=== PATIENT | male | born 1960 | race Caucasian/White ===

== ENCOUNTER 2019-05-30 07:13 | Emergency (ER) | payer MEDICAID ==
--- NOTE | 2019-05-30 08:09 | CRLCR ---
INDICATION: Dyspnea COMPARISON: July 17, 2012. TECHNIQUE: PA and lateral views of the chest were acquired FINDINGS: TUBES AND LINES: None. HEART AND MEDIASTINUM: The heart size is normal. The mediastinal contour appears normal for patient age. LUNGS AND PLEURAL SPACES: The lungs appear normal.There pleural spaces are unremarkable. OSSEOUS STRUCTURES: Age-appropriate appearance. No acute focal finding. IMPRESSION: No evidence of active pulmonary disease. Dictated by Jhoan Ng MD @ May 30 2019 8:06AM Signed by Dr. Jhoan Ng @ May 30 2019 8:07AM
[2019-05-30] MEDS ORDERED: Albuterol/Ipratropium 3.0-0.5 MG/3 ML Neb Soln NEB ONE (08:10)
[2019-05-30 08:36] VITALS: BP 141/66; PULSE 78
--- NOTE | 2019-05-30 08:38 | EDM.PDOC ---
ED HPI GENERAL MEDICAL PROBLEM - General Chief Complaint: Abdominal Pain Stated Complaint: ABDOMINAL PAIN Time Seen by Provider: 05/30/19 07:30 Source of Information: Reports: Patient, Family History Limitations: Reports: No Limitations - History of Present Illness INITIAL COMMENTS - FREE TEXT/NARRATIVE: 59-year-old male with mild chronic COPD, recent increase in cough over the past 2 months who was in the clinic yesterday and started on antibiotics for " walking pneumonia". No fevers or chills. He has a slowly worsening upper abdominal pain which is positional and radiates to the middle of his back over the past 24 hours. He has no pain when sitting up but lying down and turning from right to left or leaning forward causes the pain in his upper abdomen. No nausea or vomiting. No fevers or chills. No bowel changes. No falls or external evidence of bruising. He continues to smoke. Onset: Gradual Duration: Hour(s): (24 hours) Location: Reports: Abdomen, Back Worsens with: Reports: Other (Certain positions such as lying down or rolling side to side), Movement Associated Symptoms: Reports: Cough. Denies: Fever/Chills, Loss of Appetite, Malaise, Nausea/Vomiting, Shortness of Breath Upper Abdomen Pain Score (Numeric/FACES): 1 - Related Data Allergies Allergy/AdvReac Type Severity Reaction Status Date / Time amoxicillin [From Augmentin] Allergy Hives Verified 05/30/19 07:42 clavulanic acid Allergy Hives Verified 05/30/19 07:42 [From Augmentin] sulfamethoxazole Allergy Hives Verified 05/30/19 07:42 [From Bactrim] trimethoprim [From Bactrim] Allergy Hives Verified 05/30/19 07:42 cats Allergy Other Uncoded 05/30/19 07:29 Home Meds: Home Meds Losartan/Hydrochlorothiazide [Hyzaar 100-12.5 Tablet] 1 tab PO DAILY 04/20/15 [ History] Metoprolol Succinate [Toprol XL] 50 mg PO DAILY 04/20/15 [History] PARoxetine HCl [Paroxetine HCl] 30 mg PO QAM 04/20/15 [History] Ascorbate Calcium/Bioflavonoid [Shanice-C 1,000 mg Tablet] 1 tab PO DAILY [History] Multivitamin with Minerals [Multiple Vitamin] 1 each PO DAILY 04/22/15 [History] Azithromycin 250 mg PO DAILY 05/30/19 [History] Budesonide/Formoterol [Symbicort 160-4.5 MCG] 2 puff INH BID 05/30/19 [History] Past Medical History HEENT History: Reports: Impaired Vision Cardiovascular History: Reports: Hypertension Respiratory History: Reports: Pneumothorax Gastrointestinal History: Reports: Colon Polyp, PUD Musculoskeletal History: Reports: Fracture Neurological History: Reports: Concussion, Head Trauma Psychiatric History: Reports: Anxiety, Depression Endocrine/Metabolic History: Reports: Obesity/BMI 30+ Hematologic History: Reports: Blood Transfusion(s) Dermatologic History: Reports: Other (See Below) Other Dermatologic History: dermatitis - Infectious Disease History Infectious Disease History: Reports: Chicken Pox - Past Surgical History HEENT Surgical History: Reports: Eye Surgery, Other (See Below) GI Surgical History: Reports: Colonoscopy, Hernia, Inguinal, Polypectomy, Other (See Below) Musculoskeletal Surgical History: Reports: Other (See Below) Social & Family History - Family History Family Medical History: Noncontributory - Tobacco Use Smoking Status *Q: Current Every Day Smoker Years of Tobacco use: 40 Packs/Tins Daily: 1 - Caffeine Use Caffeine Use: Reports: Coffee, Soda - Alcohol Use Days Per Week of Alcohol Use: 7 Number of Drinks Per Day: 3 Total Drinks Per Week: 21 - Recreational Drug Use Recreational Drug Use: No ED ROS GENERAL - Review of Systems Review Of Systems: See Below Constitutional: Denies: Fever, Chills, Malaise HEENT: Reports: Other (Chronic clear rhinorrhea) Respiratory: Reports: Wheezing, Cough Cardiovascular: Denies: Chest Pain GI/Abdominal: Reports: Abdominal Pain (Epigastric radiating through to the back) : Reports: No Symptoms Skin: Reports: No Symptoms Neurological: Denies: Headache ED EXAM, GENERAL - Physical Exam Exam: See Below Exam Limited By: No Limitations General Appearance: Alert, No Apparent Distress Head: Atraumatic Respiratory/Chest: No Respiratory Distress, Wheezing (Patient has diffuse bilateral rhonchi and expiratory wheezes) Cardiovascular: Regular Rate, Rhythm GI/Abdominal: Normal Bowel Sounds, Soft, Non-Tender, Other (Large healed central incision from exploratory laparotomy years ago after an accident) Extremities: No Pedal Edema Neurological: Alert, Oriented Psychiatric: Normal Affect, Normal Mood Skin Exam: Warm, Dry Course - Vital Signs Last Recorded V/S: Last Vital Signs Temp 97.1 F 05/30/19 08:35 Pulse 78 05/30/19 08:35 Resp 18 05/30/19 08:35 BP 141/66 H 05/30/19 08:35 Pulse Ox 93 L 05/30/19 08:35 - Orders/Labs/Meds Orders: Active Orders 24 hr Category Date Time Status RT Aerosol Therapy [RC] ASDIRECTED Care 05/30/19 08:10 Active Labs: Laboratory Tests 05/30/19 05/30/19 Range/Units 08:27 08:27 WBC 9.3 (4.5-11.0) K/uL RBC 4.30 (4.30-5.90) M/uL Hgb 14.2 (12.0-15.0) g/dL Hct 40.9 (40.0-54.0) % MCV 95 (80-98) fL MCH 33 H (27-31) pg MCHC 35 (32-36) % Plt Count 324 (150-400) K/uL Neut % (Auto) 59 (36-66) % Lymph % (Auto) 21 L (24-44) % Schleicher % (Auto) 17 H (2-6) % Eos % (Auto) 3 (2-4) % Baso % (Auto) 1 (0-1) % Sodium 130 L (140-148) mmol/L Potassium 4.6 (3.6-5.2) mmol/L Chloride 94 L (100-108) mmol/L Carbon Dioxide 25 (21-32) mmol/L Anion Gap 15.6 H (5.0-14.0) mmol/L BUN 5 L (7-18) mg/dL Creatinine 0.8 (0.8-1.3) mg/dL Est Cr Clr Drug Dosing 111.82 mL/min Estimated GFR (MDRD) > 60 (>60) Glucose 92 (74-106) mg/dL Calcium 8.7 (8.5-10.1) mg/dL Troponin I < 0.017 (0.000-0.056) ng/mL Meds: Medications Discontinued Medications Generic Name Dose Route Start Last Admin Trade Name Freq PRN Reason Stop Dose Admin Albuterol/Ipratropium 3 ml 05/30/19 08:10 05/30/19 08:18 Duoneb 3.0-0.5 Mg/3 Ml NEB 05/30/19 08:11 3 ml ONETIME ONE Administration - Re-Assessments/Exams Free Text/Narrative Re-Assessment/Exam: 05/30/19 08:38 A 2 view chest x-ray was obtained which was normal, and the patient was given a DuoNeb. This pain seems to be positional, musculoskeletal but a CBC, BMP and troponin were obtained. 05/30/19 09:14 After the DuoNeb the patient had much less discomfort with coughing, CBC and BMP were generally normal other than mild hyponatremia. Troponin was negative. I asked the patient to finish his antibiotic, use albuterol several times daily and try anti-inflammatory such as naproxen through the weekend. He should return if he is worsening such as fever or increased pain, otherwise recheck next week if not improving satisfactorily. Departure - Departure Time of Disposition: 09:24 Disposition: Home, Self-Care 01 Clinical Impression: Abdominal pain Qualifiers: Abdominal location: upper abdomen, unspecified Qualified Code(s): R10.10 - Upper abdominal pain, unspecified - Discharge Information Instructions: Pain Without a Known Cause Referrals: PCP,None [Primary Care Provider] - Forms: ED Department Discharge Care Plan Goals: Finish antibiotic, use naproxen twice daily through the weekend, and increase activity as tolerated. Use albuterol inhaler 2-3 times a day to keep airways open. Return anytime if worsening such as fever or increased pain, or consider rechecking next week if not improving satisfactorily. Sepsis Event Note - Evaluation Sepsis Screening Result: No Definite Risk - Focused Exam Vital Signs: Vital Signs Temp Pulse Resp BP Pulse Ox 05/30/19 08:35 97.1 F 78 18 141/66 H 93 L 05/30/19 07:33 96.5 F 61 16 136/73 100 05/30/19 07:23 96.5 F 61 16 136/73 100 Date Exam was Performed: 05/30/19 Time Exam was Performed: 09:35 - My Orders Last 24 Hours: My Active Orders 05/30/19 08:10 RT Aerosol Therapy [RC] ASDIRECTED - Assessment/Plan Last 24 Hours: My Active Orders 05/30/19 08:10 RT Aerosol Therapy [RC] ASDIRECTED
== END 2019-05-30 09:24 | disposition home or self-care (01) ==
LOC: JP.ED 07:13
DX: R10.10 Upper abdominal pain, unspecified (principal); R05 Cough; R06.2 Wheezing; E87.1 Hypo-osmolality and hyponatremia; I10 Essential (primary) hypertension; E66.9 Obesity, unspecified; F17.210 Nicotine dependence, cigarettes, uncomplicated; Z88.1 Allergy status to other antibiotic agents; Z88.2 Allergy status to sulfonamides; Z79.899 Other long term (current) drug therapy
CPT/HCPCS: 36415; 71046; 80048; 84484; 85025; 94640; 99284-25; J7620-GY

== ENCOUNTER 2019-06-18 07:35 | Day surgery (SDC) | payer MEDICAID ==
[2019-06-18] MEDS ORDERED: fentaNYL 100 MCG/2 ML SDV ONE (07:57)
[2019-06-18] MEDS ORDERED: Propofol 200 MG/20 ML SDV ONE ×2 (07:57→10:49)
[2019-06-18] MEDS ORDERED: Midazolam 1 MG/ML 2 ML SDV ONE (07:57)
[2019-06-18] MEDS ORDERED: Dextrose 5%-Lactated Ringers 1,000 ML IV SCH (08:30)
[2019-06-18] MEDS ORDERED: Albuterol/Ipratropium 3.0-0.5 MG/3 ML Neb Soln NEB ONE (09:30)
[2019-06-18 11:51] VITALS: BP 181/90; PULSE 73
--- NOTE | 2019-06-24 14:08 | OR ---
DATE OF PROCEDURE: 06/18/2019 SURGEON: Jhoan Tanner MD PREOPERATIVE DIAGNOSES: 1. History of colon polyps. 2. History of [id number]. POSTOPERATIVE DIAGNOSES: 1. History of colon polyps. 2. Multiple [id number]. 3. Thickened mucosa in rectum with focal raised area of rectal mucosa suggestive of possible polyp versus inflammation. OPERATIVE PROCEDURE: Flexible colonoscopy with: 1. Biopsy of raised area in the rectum. 2. Random biopsies of low rectum ([id number]). ANESTHESIA: IV sedation. INDICATIONS FOR PROCEDURE: A 59-year-old presenting for followup colonoscopy. He does have a history of colon polyps. Also has history of multiple [id number] without an established diagnosis as the underlying cause. The plan is to proceed with colonoscopy with biopsies and/or polypectomy as indicated. Potential risks including bleeding and perforation were discussed, and the patient wishes to proceed. DETAILS OF PROCEDURE: The patient was taken to the operating room and placed in a left lateral decubitus position. IV sedation was administered, after which the initial digital rectal exam was performed. This externally showed 3 well-defined fistula, all of which had quite a bit of induration on them. The digital examination itself showed some mild thickening of the anorectum, but otherwise was unremarkable. The colonoscope was then passed into the rectum. Retroflexion revealed some edema and thickening of the distal most rectal mucosa. There was also 1 single raised area that may be either a polyp or an area of inflammation presenting with some raised mucosa at that level. The scope was then eventually passed to the cecum. The prep was fairly good with moderate amount of liquid stool being present. Otherwise, there were no additional abnormalities, specifically no area of diverticula, no areas of colitis, and no additional polyps or other signs of neoplasia. Scope was then withdrawn into the rectal area, and the thickened area was then biopsied multiple times and these were sent as an individual specimen. Apart from that, many lower rectum multiple circumferential biopsies were obtained to establish some histologic basis for the patient's multiple fistulae, certainly which were suggestive of Crohn disease. Minimal bleeding from the biopsy sites was seen and the procedure was then concluded. We will have the patient follow up in 1 week and evaluate the biopsy findings and appropriate referral at that point. Jhoan Tanner MD /[id number]
== END 2019-06-18 12:20 | disposition home or self-care (01) ==
LOC: JP.SDS 07:35
PROVIDERS: ATTEND Surgery
DX: Z12.11 Encounter for screening for malignant neoplasm of colon (principal); K60.3 Anal fistula; I10 Essential (primary) hypertension; J44.9 Chronic obstructive pulmonary disease, unspecified; F41.9 Anxiety disorder, unspecified; E66.9 Obesity, unspecified; Z86.010 Personal history of colon polyps
CPT/HCPCS: 45380; 94640; J2250; J2704; J3010; J7121; 88305; J7620-GY